=== PATIENT | female | born 1975 | race Hispanic/Latino ===

== ENCOUNTER → 2020-04-06 | Outpatient (CLI) | payer OTHER | END | disposition home or self-care (01) | LOC: RAH 08:12 | PROVIDERS: ATTEND Nurse Practitioner Family | DX: K76.0 Fatty (change of) liver, not elsewhere classified (principal) | CPT/HCPCS: 76700 ==

== ENCOUNTER → 2025-06-30 | Outpatient (CLI) | payer OTHER ==
--- NOTE | 2025-07-02 09:53 | HMCIMG ---
EXAM: CT Coronary Calcium Scoring. CLINICAL HISTORY: Screening examination. TECHNIQUE: Non-contrast, ECG-gated CT scan of the heart was performed. Calcium scoring was calculated using the Agatston method. CONTRAST: No intravenous contrast. COMPARISON: None provided. FINDINGS: LEFT MAIN (LM): No calcified plaque. Calcium score 0. LEFT ANTERIOR DESCENDING (LAD): No calcified plaque. Calcium score 0. LEFT CIRCUMFLEX (CX): No calcified plaque. Calcium score 0. RIGHT CORONARY ARTERY (RCA): No calcified plaque. Calcium score 0. POSTERIOR/CA (Ca): No calcified plaque. Calcium score 0. TOTAL CALCIUM SCORE: 0. IMPRESSION: No coronary artery calcification detected. Total Agatston calcium score 0, consistent with very low risk of coronary artery disease-related events. /Tay
== END | disposition home or self-care (01) ==
LOC: RAH 14:45
PROVIDERS: ATTEND Internal Medicine Nephrology
DX: Z13.6 Encounter for screening for cardiovascular disorders (principal)
CPT/HCPCS: 75571